=== PATIENT | male | born 1950 | race Caucasian/White ===

== ENCOUNTER → 2017-01-10 | Outpatient (CLI) | payer OTHER ==
[~2017-01-10] MED LIST: ATOR10TA82 PO; CALCTAB5 PO; CARB25TA16 PO; CHOL2000 PO; CO Q10; HYDR25TA4 PO; LISI10TA PO; MULT-190 PO; SELE5CAP2 PO; VITA400C15 PO
[2017-01-10 14:27] VITALS: BP 121/69; PULSE 84; TEMP 36.9; O2SAT 96
--- NOTE | 2017-01-10 16:28 | Radiation Oncology Follow-Up ---
Radiation Oncology Follow-Up Date of Visit Jan 10, 2017. Reason For Visit Annual follow-up Radiation Completion Date 04/12/13 Diagnosis (1) Prostate cancer Status: Resolved Onset Date: 10/25/2012 Location: right lobe of the prostate Histology Subtype: adenocarcinoma Stage: ll Permanent Comment: Rising PSA, pretreatment PSA 4.23 Status post biopsies. Biopsy stage T2b, Lelia 3+4 Status post completion of radiation therapy utilizing IMRT/IGRT completed 2012 received 7840 cGy Last Edited By: Yanet Petersen on Nov 24, 2015 14:02 Interim History He has been doing well over this past year from urinary standpoint. His AUA score was 3. He completed expanded prostate cancer index composite for clinical practice with the aid of his brother. He gave a score of 0 of 12 urinary incontinence symptoms. He gave a score of 0 of 12 and urinary irritation symptoms. He gave a score of 0 12 bowel symptoms. The sexual symptom category was not completed. He gave a score of 0 12 and hormonal vitality symptoms. His total with 0/48. He had a PSA 06/16/2016 and that was 0.175. Allergies Uncoded Allergies: NKDA (Allergy, Unknown, 07/04/05) Home Medications Scheduled Atorvastatin (Lipitor), 10 MG PO DAILY Calcium (Caltrate), 600 MG PO DAILY Carbidopa/Levodopa (Sinemet Cr 25MG/100MG), 1 TAB PO TID Cholecalciferol (Vitamin D3), 2 CAP PO DAILY Hydrochlorothiazide (Hctz), 25 MG PO DAILY Lisinopril (Prinivil), 10 MG PO DAILY Ocuvite Preservision (Ocuvite Preservision), 1 TAB PO BID Selegiline Hcl (Eldepryl), 5 MG PO BID Tocopheryl Acet,Dl-Alpha (Vitamin E), 400 INTER.UNIT PO DAILY [co Q-10], 600 MG BID Review of Systems Gastrointestinal: Symptoms: WNL GI Comments: No fiber supplements; Oral: Symptoms: No Problems Respiratory: Symptoms: WNL Urinary: Symptoms: WNL Comments: 3 voids/night; Skin: Symptoms: No Problems Physical Exam Vital Signs Date Time Temp Pulse Resp B/P Pulse Ox O2 Delivery O2 Flow Rate FiO2 01/10/17 14:27 36.9 84 24 121/69 96 Pain: Pain Location: None Patient Pain Scale: 0 - 10 Initial Pain Intensity: 0.0 General Appearance: no apparent distress Eyes: normal inspection, EOMI ENT: normal ENT inspection, + pertinent finding (very decreased hearing he does have some wax in the left ear.) Neck: no adenopathy, thyroid normal Respiratory/Chest: lungs clear, no respiratory distress, no accessory muscle use Cardiovascular: regular rate, rhythm, no gallop, no murmur Abdomen: non tender, soft Anal / Rectum: Rectal examination reveals prostate to be smooth without nodules no rectal masses no rectal bleeding. Extremities: no pedal edema Neurologic/Psychiatric: no motor/sensory deficits, alert, normal mood/affect Skin: warm/dry Lymphatic: no adenopathy Laboratory Studies Test 01/10/17 14:43 Prostate Specific Antigen 0.164 ng/ml (0.000-4.000) Assessment & Plan Plan: A PSA was drawn today prior to examination he'll be notified as to results. His brother has noted decreased hearing acuity. He did have some wax on left. I've asked him to see Dr. Vauhgan if his continued to have problems with his hearing. He'll continue regular follow-up with Dr. Dawn. We asked him to return to our office in 1 year. He may call if she has a questions or concerns in the interim. Total Time In Follow-Up I spent 20 minutes speaking to the patient performing examination. I spent 15 minutes reviewing information in completing this note. Copy To Charly Vaughan M.D.; Sanjay Dawn MD
== END | disposition home or self-care (01) ==
LOC: C.ONC 13:59
PROVIDERS: ATTEND Physician Assistant Medical
DX: Z08 Encounter for follow-up examination after completed treatment for malignant neoplasm (principal); Z92.3 Personal history of irradiation; Z85.46 Personal history of malignant neoplasm of prostate

== ENCOUNTER → 2017-02-02 | Outpatient (CLI) | payer OTHER ==
[2017-02-02 11:11] LABS: BASO % 1.8 %; BASO ABS # 0.09 K/uL (0-0.2); COMPLETE YES; EOS % 4.9 %; IG% 0.2 %; LYMPH % 19.4 %; LYMPH ABS # 0.99 K/uL (1.2-3.4); MEAN CELL VOLUME 89.4 fL (80-100); MEAN CORPUSCULAR HEMOGLOBIN 30.7 pg (25-34); MEAN CORPUSCULAR HGB CONC 34.3 g/dl (32-36); MEAN PLATELET VOLUME 9.3 fL (7.4-10.4); MONO % 8.8 %; NEUT % 64.9 %; PLATELET COUNT 296 K/uL (130-400); RED BLOOD COUNT 4.92 M/uL (4.7-6.1); WHITE BLOOD COUNT 5.11 K/uL (4.8-10.8)
[2017-02-02 11:31] LABS: ALB/GLOB RATIO 1.3 (0.9-2); ALKALINE PHOSPHATASE 60 U/L (45-117); BLOOD UREA NITROGEN 20 mg/dl (7-18); BUN/CREATININE RATIO 26.4 (10-20); CALCIUM 8.8 mg/dl (8.5-10.1); CARBON DIOXIDE 31 mmol/L (21-32); CHLORIDE 104 mmol/L (98-107); CREATININE 0.77 mg/dl (0.60-1.40); ESTIMATED AVERAGE GLUCOSE 126 mg/dl; GLUCOSE 110 mg/dl (70-99); HA1C FLAG Normal (Normal); HDL CHOLESTEROL 49 mg/dl; POTASSIUM 4.3 mmol/L (3.5-5.1); SODIUM 140 mmol/L (136-145); TRIGLYCERIDES 69 mg/dl (0-150); VERY LOW DENSITY LIPOPROT CALC 14 mg/dl
[2017-02-02 11:39] LABS: ALT/SGPT 26 U/L (12-78); AST/SGOT 16 U/L (15-37); CHOLESTEROL 147 mg/dl (0-200); LDL CHOLESTEROL CALCULATED 84 mg/dl
--- NOTE | 2017-02-08 11:46 | CODING QUERY MEDICAL NECESSITY ---
SUPPORTING DIAGNOSIS NEEDED A supporting diagnosis is required for the test/procedure performed on this patient in order for us to be reimbursed by the patient's insurance. Please provide a supporting diagnosis for the following test/procedure listed below next to the test name along with your signature. *If there is no additional diagnosis for this patient that would support the following test/procedure please document that below next to the test/procedure. Test(s)/Procedure(s) that require a supporting diagnosis: DOS 02/02 * Hba1c DIAGNOSIS: * TSH DIAGNOSIS: * Lipids DIAGNOSIS: Provider Signature: Date: Thank you Елена Alvarez Health Information Management Once completed, please kindly fax back to [phone] For questions please call [phone]
== END | disposition home or self-care (01) ==
LOC: C.LABBC 08:18
PROVIDERS: ATTEND Internal Medicine
DX: G20 Parkinson's disease (principal); R73.03 Prediabetes; E78.5 Hyperlipidemia, unspecified; I10 Essential (primary) hypertension

== ENCOUNTER → 2017-06-20 | Outpatient (CLI) | payer OTHER ==
[~2017-06-20] MED LIST changes: -ATOR10TA82 PO; +ATOR10TA88 PO
== END | disposition home or self-care (01) ==
LOC: C.LABBC 11:51
PROVIDERS: ATTEND Urology
DX: C61 Malignant neoplasm of prostate (principal); R39.9 Unspecified symptoms and signs involving the genitourinary system

== ENCOUNTER → 2018-01-16 | Outpatient (CLI) | payer OTHER ==
[~2018-01-16] MED LIST changes: +ATOR10TA82 PO; -ATOR10TA88 PO
[2018-01-16 12:57] VITALS: BP 143/72; PULSE 84; TEMP 36.7; O2SAT 96
--- NOTE | 2018-01-16 14:07 | Radiation Oncology Follow-Up ---
Radiation Oncology Follow-Up Date of Visit Jan 16, 2018. Reason For Visit Annual follow up Radiation Completion Date 04/12/13 Diagnosis (1) Prostate cancer Status: Resolved Onset Date: 10/25/2012 Stage: ll Permanent Comment: Rising PSA, pretreatment PSA 4.23 Status post biopsies. Biopsy stage T2b, Lelia 3+4 Status post completion of radiation therapy utilizing IMRT/IGRT completed 2012 received 7840 cGy Last Edited By: Yanet Petersen on Nov 24, 2015 14:02 Interim History He has been doing well over this past year. He has noted no change in urinary habits. Today he gave an AUA score of 3. He completed an expanded prostate cancer index composite for clinical practice and gave a score of 0 of 12 and urinary incontinence symptoms. He gives score of 1 of 12 and urinary irritation symptoms. He gave a score of 0 of 12 and bowel symptoms. He did not complete the sexual questionnaire. He gave a score 2 of 12 and hormonal vitality symptoms. His total was 3 of 48. His last PSA was June 20, 2017. That was 0.259. Allergies Uncoded Allergies: NKDA (Allergy, Unknown, 07/04/05) Home Medications Scheduled Atorvastatin (Lipitor), 10 MG PO DAILY Calcium (Caltrate), 600 MG PO DAILY Carbidopa/Levodopa (Sinemet Cr 25MG/100MG), 1 TAB PO TID Cholecalciferol (Vitamin D3), 2 CAP PO DAILY Hydrochlorothiazide (Hctz), 25 MG PO DAILY Lisinopril (Prinivil), 10 MG PO DAILY Ocuvite Preservision (Ocuvite Preservision), 1 TAB PO BID Selegiline Hcl (Eldepryl), 5 MG PO BID Tocopheryl Acet,Dl-Alpha (Vitamin E), 400 INTER.UNIT PO DAILY [co Q-10], 600 MG BID Review of Systems Gastrointestinal: Symptoms: WNL GI Comments: No fiber supplements; Oral: Symptoms: No Problems Respiratory: Symptoms: WNL Urinary: Symptoms: Nocturia Comments: 3 or4 times a night Skin: Symptoms: No Problems Physical Exam Vital Signs Date Time Temp Pulse Resp B/P (MAP) Pulse Ox O2 Delivery O2 Flow Rate FiO2 01/16/18 12:57 36.7 84 18 143/72 96 Fatigue: None General Appearance: no apparent distress Eyes: normal inspection, EOMI ENT: normal ENT inspection, hearing grossly normal Neck: no adenopathy, thyroid normal Respiratory/Chest: lungs clear, no respiratory distress, no accessory muscle use Cardiovascular: regular rate, rhythm, no gallop, no murmur Abdomen: non tender, soft, no organomegaly Anal / Rectum: Normal sphincter tone. No rectal masses no rectal bleeding. Prostate without nodules. Extremities: no pedal edema Neurologic/Psychiatric: no motor/sensory deficits, alert, normal mood/affect Pain Management Patient Reports Pain: No Pain Location: None Patient Preferred Pain Scale: 0 - 10 Initial Pain Intensity: 0.0 Pain Management Plan He denies pain therefore requires no pain management. Laboratory Laboratory Results: were reviewed, and pertinent findings noted below Laboratory Comments: Test 01/16/18 13:10 Prostate Specific Antigen 0.154 ng/ml (0.000-4.000) Pathology Pathology Results: not applicable Imaging Imaging Studies: not applicable Assessment & Plan Plan: Continue regular follow-up with Dr. Dawn. He has an appointment on July 10. He will have a PSA prior to that visit. He does not require any medication to help with urination. He is accompanied today with his brother. We discussed continue follow-up now with urology alone. A follow-up appointment with our office was not given. We had previously discussed biochemical failure. We once again reviewed this information. The PSA was drawn today prior to examination. He will be notified as to the results. They may call our office if they have any questions or concerns would be happy to speak to them. Total Time In Follow-Up I spent 20 minutes speaking to the patient and his brother and performing examination. I spent 15 minutes reviewing information and completing this note. Copy To Charly Vaughan M.D.; Sanjay Dawn MD
== END | disposition home or self-care (01) ==
LOC: C.ONC 12:38
PROVIDERS: ATTEND Physician Assistant Medical
DX: Z08 Encounter for follow-up examination after completed treatment for malignant neoplasm (principal); Z92.3 Personal history of irradiation; Z85.46 Personal history of malignant neoplasm of prostate

== ENCOUNTER → 2018-02-15 | Outpatient (CLI) | payer OTHER ==
[2018-02-15 11:22] LABS: HEMOGLOBIN A1C 6.1 % (4.5-5.6)
[2018-02-15 14:29] LABS: ALT/SGPT 34 U/L (12-78); AST/SGOT 21 U/L (15-37); BLOOD UREA NITROGEN 20 mg/dl (7-18); CALCIUM 9.4 mg/dl (8.5-10.1); CARBON DIOXIDE 30 mmol/L (21-32); CHOLESTEROL 161 mg/dl (0-200); CREATININE 0.82 mg/dl (0.60-1.40); GLUCOSE 103 mg/dl (70-99); SODIUM 137 mmol/L (136-145)
[2018-02-15 14:32] LABS: ALKALINE PHOSPHATASE 75 U/L (45-117); LDL CHOLESTEROL CALCULATED 87 mg/dl; TOTAL PROTEIN 7.6 gm/dl (6.4-8.2)
== END | disposition home or self-care (01) ==
LOC: C.LABBC 08:50
PROVIDERS: ATTEND Internal Medicine
DX: R73.03 Prediabetes (principal); E78.5 Hyperlipidemia, unspecified; I10 Essential (primary) hypertension; Z11.59 Encounter for screening for other viral diseases

== ENCOUNTER → 2018-03-02 | Outpatient (CLI) | payer OTHER ==
--- NOTE | 2018-03-02 12:02 | DIAGNOSTIC IMAGING REPORT ---
R HIP UNILATERAL 2 VIEWS, L HIP UNILATERAL 2 VIEWS HISTORY: 67 years-old Male PAIN chronic bilateral hip pain COMPARISON: None available TECHNIQUE: 2 views of the bilateral hips FINDINGS: RIGHT: Metallic seeds overlie the distribution of the prostate. Mild to moderate right and posterior arthritis. No acute fracture or dislocation. LEFT: Mild to moderate osteoarthritis with chondrocalcinosis of the femoral acetabular joint. No acute fracture or dislocation. No opaque foreign body. IMPRESSION: Mild to moderate bilateral hip osteoarthritis without acute fracture or dislocation. The above report was generated using voice recognition software. It may contain grammatical, syntax or spelling errors. Electronically signed by: Gerson Hernandez M.D. 03/02/2018 12:00 PM Dictated Date/Time: 03/02/2018 11:58 AM
--- NOTE | 2018-03-02 12:08 | DIAGNOSTIC IMAGING REPORT ---
L-SPINE MIN 4 VIEWS ROUTINE CLINICAL HISTORY: 67 years-old Male presenting with M54.5 Bilateral low back pain without sciatica. TECHNIQUE: Frontal, bilateral oblique, lateral, and coned in lateral views of the lumbar spine were obtained. COMPARISON: None. FINDINGS: Cholecystectomy clips noted. Dextrocurvature of the lumbar spine. Normal lumbar lordosis. Vertebral bodies maintain normal height and alignment. Intervertebral disc heights preserved. Mild anterior osteophytosis. No radiographic evidence of osseous neural foraminal narrowing. No compression deformity. No subluxation. Calculus suggested at the lower pole of the left kidney. IMPRESSION: 1. Mild multilevel degenerative changes of the lumbar spine there is no radiographic evidence of acute osseous injury. 2. Suspected left renal calculus. Electronically signed by: Charly Wood M.D. 03/02/2018 12:07 PM Dictated Date/Time: 03/02/2018 12:05 PM
--- NOTE | 2018-03-02 12:26 | DIAGNOSTIC IMAGING REPORT ---
L KNEE 1 OR 2 VIEWS ROUTINE HISTORY: 67 years-old Male M79.605 Left leg pain acute left knee pain COMPARISON: None available TECHNIQUE: 2 views of the left knee FINDINGS: Mild lateral compartment with moderate medial and patellofemoral compartment osteoarthritis. Chondrocalcinosis is also seen. Small joint effusion with mild circumferential soft tissue swelling about the knee, greatest anteromedially. 3 mm calcification about the medial femoral condyle suggesting dystrophic calcification. No acute fracture or dislocation. Peripheral arterial calcifications noted. IMPRESSION: 1. Tricompartment osteoarthritis without acute fracture or dislocation. 2. Small joint effusion with mild anteromedial soft tissue swelling. 3. Peripheral arterial disease. The above report was generated using voice recognition software. It may contain grammatical, syntax or spelling errors. Electronically signed by: Gerson Hernandez M.D. 03/02/2018 12:24 PM Dictated Date/Time: 03/02/2018 12:23 PM
== END | disposition home or self-care (01) ==
LOC: C.RADBC 11:20
PROVIDERS: ATTEND Internal Medicine
DX: M47.896 Other spondylosis, lumbar region (principal); M16.10 Unilateral primary osteoarthritis, unspecified hip; M11.252 Other chondrocalcinosis, left hip; M17.12 Unilateral primary osteoarthritis, left knee